=== PATIENT | male | born 1950 | race Caucasian/White ===

== ENCOUNTER 2017-10-23 10:24 | Observation (INO) ==
[2017-10-23] MEDS ORDERED: SODIUM CHLORIDE 0.45% 1,000 ML IV SCH (10:30)
[2017-10-23] MEDS ORDERED: DIAZEPAM 5 MG TABLET PO ONE (10:30)
[2017-10-23] MEDS ORDERED: diphenhydrAMINE CAP 25 MG CAPSULE PO ONE (10:30)
[2017-10-23] MEDS ORDERED: ASPIRIN 325 MG TABLET PO ONE (10:30)
[2017-10-23 11:15] LABS: Basophils % 0.5 % (0.0-0.8); Eosinophils # 0.1 10*3/uL (0.0-0.87); Eosinophils % 1.8 % (0.00-10.9); Hemoglobin 15.5 GM/DL (14.0-18.0); Immature Granulocytes % 0.4 %; Immature Granulocytes Absolute 0.03 #; Lymphocytes # 0.8 10*3/uL (1.4-4.0); Lymphocytes % 9.6 % (21.2-54.2); Mean Corpuscular HGB Conc 33.7 GM/DL (32-36); Mean Corpuscular Hemoglobin 32 PG (27-34); Mean Corpuscular Volume 95.2 FL (87-102); Mean Platelet Volume 10.7 FL (9.6-12.0); Monocytes # 0.7 10*3/uL (0.11-0.8); Monocytes % 9.1 % (1.7-12.7); Neutrophils # 6.1 10*3/uL (1.4-7.4); Neutrophils % 78.6 % (38.7-73.9); Platelet Count 298 T/CUMM (130-400); Red Blood Count 4.83 MC/CUMM (3.8-5.5); Red Cell Distribution Width 14.1 % (9.3-17.3); White Blood Count 7.8 T/CUMM (4-12)
[2017-10-23] MEDS ORDERED: DIAZEPAM 5 MG TABLET ONE (11:46)
[2017-10-23] MEDS ORDERED: ASPIRIN 325 MG TABLET ONE (11:46)
[2017-10-23] MEDS ORDERED: diphenhydrAMINE CAP 25 MG CAPSULE ONE (11:46)
[2017-10-23] MEDS ORDERED: LIDOCAINE 1% 20 ML VIAL ONE (13:03)
[2017-10-23] MEDS ORDERED: fentaNYL 100 MCG/2 ML VIAL ONE (13:03)
[2017-10-23] MEDS ORDERED: MIDAZOLAM 2 MG/2 ML VIAL ONE ×2 (13:03→13:40)
[2017-10-23] MEDS ORDERED: HEPARIN/NACL 0.9% 2 UNITS/ML 2,000 ML IV ONE (13:03)
[2017-10-23] MEDS ORDERED: ACETAMINOPHEN 325 MG TABLET PO PRN (14:47)
[2017-10-23] MEDS ORDERED: POTASSIUM CHLORIDE 20 MEQ TABLET PO PRN (14:55)
[2017-10-23] MEDS ORDERED: ALBUTEROL 2.5 MG/3 ML NEB RESP TX PRN (14:55)
[2017-10-23] MEDS: POTASSIUM CHLORIDE 20 MEQ TABLET PO SCH (17:47)
[2017-10-23] MEDS: FUROSEMIDE 20 MG TABLET PO SCH (17:47)
[2017-10-23] MEDS: SODIUM BICARB INJ 50 MEQ in SODIUM CHLORIDE 0.45% 1,000 ML IV SCH (18:43)
[2017-10-23] MEDS ORDERED: ATORVASTATIN 20 MG TABLET PO SCH (21:00)
[2017-10-23] MEDS: FAMOTIDINE 20 MG TABLET PO SCH (21:03)
[2017-10-23] MEDS: CALCIUM (CARBONATE) 500 MG TABLET PO SCH (21:03)
[2017-10-23] MEDS: FLUTICASONE/SALMETEROL 250-50 DISKUS 14 DOSE INH SCH (21:03)
[2017-10-24] MEDS: SODIUM BICARB INJ 50 MEQ in SODIUM CHLORIDE 0.45% 1,000 ML IV SCH ×2 (05:18→16:09)
[2017-10-24 05:43] LABS: Basophils % 0.6 % (0.0-0.8); Eosinophils # 0.3 10*3/uL (0.0-0.87); Eosinophils % 5.3 % (0.00-10.9); Hematocrit 42.4 VOL% (42.0-52.0); Hemoglobin 14.4 GM/DL (14.0-18.0); Immature Granulocytes % 0.4 %; Immature Granulocytes Absolute 0.02 #; Lymphocytes # 0.8 10*3/uL (1.4-4.0); Lymphocytes % 16.1 % (21.2-54.2); Mean Corpuscular Hemoglobin 32 PG (27-34); Mean Corpuscular Volume 94.6 FL (87-102); Mean Platelet Volume 11.5 FL (9.6-12.0); Monocytes # 0.7 10*3/uL (0.11-0.8); Monocytes % 14.6 % (1.7-12.7); Neutrophils # 3.1 10*3/uL (1.4-7.4); Platelet Count 272 T/CUMM (130-400); Red Blood Count 4.48 MC/CUMM (3.8-5.5); Red Cell Distribution Width 14.4 % (9.3-17.3); White Blood Count 4.9 T/CUMM (4-12)
[2017-10-24 06:25] LABS: Calcium 7.7 MG/DL (8.5-10.1); Osmolality,Calculated 284.1 MOS/KG (273-304); Potassium 3.5 MMOL/L (3.5-5.1)
[2017-10-24] MEDS ORDERED: LEVOTHYROXINE 175 MCG TABLET PO SCH (06:30)
[2017-10-24] MEDS: CALCIUM (CARBONATE) 500 MG TABLET PO SCH (08:52)
[2017-10-24] MEDS: FAMOTIDINE 20 MG TABLET PO SCH (08:53)
[2017-10-24] MEDS ORDERED: METOPROLOL TARTRATE 25 MG TABLET PO SCH (09:00)
[2017-10-24] MEDS ORDERED: ASPIRIN EC 81 MG TABLET PO SCH ×2 (09:00)
[2017-10-24] MEDS ORDERED: MULTIVITAMIN (CENTRUM) TABLET PO SCH (09:00)
[2017-10-24] MEDS ORDERED: CETIRIZINE 10 MG TABLET PO SCH (09:00)
[2017-10-24] MEDS ORDERED: FUROSEMIDE 40 MG TABLET PO SCH (09:00)
[2017-10-24] MEDS: FLUTICASONE/SALMETEROL 250-50 DISKUS 14 DOSE INH SCH (11:00)
[2017-10-24 17:01] VITALS: BP 98/61
[2017-10-24] MEDS: POTASSIUM CHLORIDE 20 MEQ TABLET PO SCH (18:09)
[2017-10-24] MEDS: FUROSEMIDE 20 MG TABLET PO SCH (18:09)
== END 2017-10-24 18:00 | disposition home or self-care (01) ==
LOC: N.CL 10:24 → INTOOBSV 14:17 → N.TELES 14:17
PROVIDERS: ADMIT Internal Medicine Cardiovascular Disease; ATTEND Internal Medicine Cardiovascular Disease

== ENCOUNTER 2017-11-21 10:18 | Inpatient (IN) ==
[2017-11-21] MEDS ORDERED: diphenhydrAMINE CAP 25 MG CAPSULE PO ONE (10:47)
[2017-11-21] MEDS ORDERED: DIAZEPAM 5 MG TABLET PO ONE (10:47)
[2017-11-21] MEDS ORDERED: TICAGRELOR 90 MG TABLET PO ONE (10:47)
[2017-11-21] MEDS ORDERED: diphenhydrAMINE CAP 25 MG CAPSULE ONE (11:30)
[2017-11-21] MEDS ORDERED: DIAZEPAM 5 MG TABLET ONE (11:30)
[2017-11-21] MEDS ORDERED: TICAGRELOR 90 MG TABLET ONE (11:32)
[2017-11-21] MEDS ORDERED: ALBUTEROL/IPRATROPIUM 3 ML NEB RESP TX STA (11:33)
[2017-11-21 11:34] LABS: Basophils % 0.6 % (0.0-0.8); Eosinophils # 0.1 10*3/uL (0.0-0.87); Eosinophils % 1.3 % (0.00-10.9); Hematocrit 43.6 VOL% (42.0-52.0); Hemoglobin 14.9 GM/DL (14.0-18.0); Immature Granulocytes % 0.6 %; Immature Granulocytes Absolute 0.04 #; Lymphocytes # 0.6 10*3/uL (1.4-4.0); Mean Corpuscular HGB Conc 34.2 GM/DL (32-36); Mean Corpuscular Hemoglobin 32 PG (27-34); Mean Corpuscular Volume 92.6 FL (87-102); Mean Platelet Volume 11.1 FL (9.6-12.0); Monocytes # 0.5 10*3/uL (0.11-0.8); Monocytes % 7.4 % (1.7-12.7); Neutrophils # 5.8 10*3/uL (1.4-7.4); Neutrophils % 81.1 % (38.7-73.9); Platelet Count 267 T/CUMM (130-400); Red Blood Count 4.71 MC/CUMM (3.8-5.5); Red Cell Distribution Width 13.9 % (9.3-17.3); White Blood Count 7.2 T/CUMM (4-12)
[2017-11-21] MEDS: SODIUM CHLORIDE 0.9% 1,000 ML IV SCH ×2 (11:37→19:15)
[2017-11-21 12:05] LABS: Calcium 8.2 MG/DL (8.5-10.1); Osmolality,Calculated 278.5 MOS/KG (273-304); Potassium 3.5 MMOL/L (3.5-5.1)
[2017-11-21] MEDS ORDERED: HEPARIN/NACL 0.9% 2 UNITS/ML 1,000 ML IV ONE (12:05)
[2017-11-21] MEDS ORDERED: HEPARIN/NACL 0.9% 2 UNITS/ML 500 ML IV ONE ×2 (12:20→14:12)
[2017-11-21] MEDS ORDERED: HEPARIN 5,000 UNIT/1 ML VIAL ONE (12:41)
[2017-11-21] MEDS ORDERED: DOPamine 800 MG/250 ML PREMIX IV ONE (12:59)
[2017-11-21 13:05] LABS: Apearance,Urine CLEAR (Clear); Bacteria,Urine Occasional /HPF (Few); Bilirubin,Urine Negative (Negative); Blood, Urine Negative (Negative); Glucose,Urine (UA) Negative (Negative); Ketones,Urine 80 mg/dL (Negative); Nitrite,Urine Negative (Negative); Protein,Urine Negative; RBC,Urine 2 /HPF (0-4); Squamous Epithelial Cell,Urine Occasional /HPF (0-10); Urine Color Yellow (Yellow); Urine Specific Gravity 1.016 (1.001-1.035); Urine Urobilinogen < 2.0 EU/DL (0.2-1.0); WBC,Urine <1 /HPF (0-6)
[2017-11-21] MEDS ORDERED: MIDAZOLAM 2 MG/2 ML VIAL ONE (14:23)
[2017-11-21] MEDS ORDERED: fentaNYL 100 MCG/2 ML VIAL ONE (14:24)
[2017-11-21] MEDS ORDERED: MORPHINE 4 MG/1 ML VIAL IV PRN (15:00)
[2017-11-21] MEDS ORDERED: ACETAMINOPHEN 325 MG TABLET PO PRN (15:00)
[2017-11-21] MEDS ORDERED: POTASSIUM CHLORIDE 20 MEQ TABLET PO PRN (15:02)
[2017-11-21] MEDS ORDERED: LIDOCAINE 1%/EPI INJ 20 ML VIAL ONE (15:17)
[2017-11-21] MEDS ORDERED: SODIUM CHLORIDE 0.9% 250 ML IV ONE ×2 (16:40→18:03)
[2017-11-21 17:02] LABS: Troponin I Only 0.725 NG/ML (0.00-0.045)
[2017-11-21] MEDS ORDERED: PHENYLEPHRINE DRIP 40 MG/250 ML PREMIX IV PRN (18:36)
[2017-11-21 20:08] LABS: Troponin I Only 0.613 NG/ML (0.00-0.045)
[2017-11-21] MEDS: FLUTICASONE/SALMETEROL 250-50 DISKUS 14 DOSE INH SCH (20:28)
[2017-11-21] MEDS: CALCIUM (CARBONATE) 500 MG TABLET PO SCH (20:29)
[2017-11-21] MEDS: TICAGRELOR 90 MG TABLET PO SCH (20:29)
[2017-11-21] MEDS: ALBUTEROL/IPRATROPIUM 3 ML NEB RESP TX SCH (20:32)
[2017-11-21] MEDS ORDERED: FUROSEMIDE 40 MG TABLET PO SCH (21:00)
[2017-11-21] MEDS ORDERED: ATORVASTATIN 20 MG TABLET PO SCH (21:00)
[2017-11-21 21:58] LABS: Troponin I Only 0.472 NG/ML (0.00-0.045)
[2017-11-22] MEDS: ALBUTEROL/IPRATROPIUM 3 ML NEB RESP TX SCH ×3 (01:10→13:50)
[2017-11-22] MEDS: SODIUM CHLORIDE 0.9% 1,000 ML IV SCH (02:46)
[2017-11-22 03:27] LABS: Basophils % 0.2 % (0.0-0.8); Eosinophils # 0.1 10*3/uL (0.0-0.87); Eosinophils % 0.7 % (0.00-10.9); Hematocrit 38.6 VOL% (42.0-52.0); Immature Granulocytes % 0.4 %; Immature Granulocytes Absolute 0.04 #; Lymphocytes # 0.8 10*3/uL (1.4-4.0); Lymphocytes % 7.5 % (21.2-54.2); Mean Corpuscular HGB Conc 33.7 GM/DL (32-36); Mean Corpuscular Hemoglobin 32 PG (27-34); Mean Corpuscular Volume 94.1 FL (87-102); Mean Platelet Volume 11.7 FL (9.6-12.0); Monocytes % 9.1 % (1.7-12.7); Neutrophils # 8.6 10*3/uL (1.4-7.4); Neutrophils % 82.1 % (38.7-73.9); Platelet Count 235 T/CUMM (130-400); White Blood Count 10.5 T/CUMM (4-12)
[2017-11-22 03:52] LABS: Calcium 7.5 MG/DL (8.5-10.1); Osmolality,Calculated 283.3 MOS/KG (273-304); Potassium 3.2 MMOL/L (3.5-5.1)
[2017-11-22] MEDS ORDERED: POTASSIUM CHLORIDE 20 MEQ TABLET PO ONE ×3 (06:07→08:08)
[2017-11-22] MEDS ORDERED: GLYCERIN ADULT SUPP RECTAL ONE (06:51)
[2017-11-22] MEDS ORDERED: LEVOTHYROXINE 175 MCG TABLET PO SCH (07:00)
[2017-11-22] MEDS ORDERED: PANTOPRAZOLE 40 MG TABLET PO SCH (09:00)
[2017-11-22] MEDS ORDERED: CETIRIZINE 10 MG TABLET PO SCH (09:00)
[2017-11-22] MEDS ORDERED: METOPROLOL TARTRATE 25 MG TABLET PO SCH (09:00)
[2017-11-22] MEDS ORDERED: MULTIVITAMIN (CENTRUM) TABLET PO SCH (09:00)
[2017-11-22] MEDS ORDERED: ASPIRIN EC 81 MG TABLET PO SCH (09:00)
[2017-11-22] MEDS: TICAGRELOR 90 MG TABLET PO SCH (09:13)
[2017-11-22] MEDS: CALCIUM (CARBONATE) 500 MG TABLET PO SCH (09:14)
[2017-11-22] MEDS: FLUTICASONE/SALMETEROL 250-50 DISKUS 14 DOSE INH SCH (09:14)
[2017-11-22 15:32] VITALS: BP 92/53
== END 2017-11-22 15:25 | disposition home or self-care (01) | DRG 215 ==
LOC: N.CL 10:18 → N.CC 11:01 → EDSTATUS 12:00 → N.CC 14:15
PROVIDERS: ADMIT Internal Medicine Cardiovascular Disease; ATTEND Internal Medicine Cardiovascular Disease

== ENCOUNTER 2018-07-30 12:52 | Inpatient (IN) ==
[2018-07-30] MEDS ORDERED: ASPIRIN 325 MG TABLET PO STA (13:28)
[2018-07-30] MEDS ORDERED: ALBUTEROL/IPRATROPIUM 3 ML NEB RESP TX STA (13:28)
[2018-07-30] MEDS ORDERED: SODIUM CHLORIDE 0.9% 1,000 ML IV STA (13:54)
[2018-07-30 14:22] LABS: Basophils % 0.1 % (0.0-0.8); Eosinophils # 0.1 10*3/uL (0.0-0.87); Eosinophils % 0.4 % (0.00-10.9); Hematocrit 37.8 VOL% (42.0-52.0); Immature Granulocytes % 0.5 %; Immature Granulocytes Absolute 0.06 #; Lymphocytes # 0.5 10*3/uL (1.4-4.0); Lymphocytes % 3.5 % (21.2-54.2); Mean Corpuscular HGB Conc 34.4 GM/DL (32-36); Mean Corpuscular Hemoglobin 32 PG (27-34); Mean Corpuscular Volume 92.9 FL (87-102); Mean Platelet Volume 10.3 FL (9.6-12.0); Monocytes # 1.2 10*3/uL (0.11-0.8); Monocytes % 8.9 % (1.7-12.7); Neutrophils # 11.4 10*3/uL (1.4-7.4); Neutrophils % 86.6 % (38.7-73.9); Platelet Count 375 T/CUMM (130-400); Red Blood Count 4.07 MC/CUMM (3.8-5.5); Red Cell Distribution Width 14.3 % (9.3-17.3); White Blood Count 13.2 T/CUMM (4-12)
[2018-07-30 14:29] LABS: PT Patient Result 11.3 SECS
[2018-07-30 14:43] LABS: Alanine Aminotransferase 25 U/L (16-61); Albumin 1.8 G/DL (3.4-5.0); Alkaline Phosphatase 143 U/L (45-117); Aspartate Amino Transferase 27 U/L (0-37); Blood Urea Nitrogen 18 MG/DL (7-18); Calcium 7.5 MG/DL (8.5-10.1); Glucose 142 MG/DL (74-106); Lactic Acid 1.3 MMOL/L (0.4-2.0); Osmolality,Calculated 273.1 MOS/KG (273-304); Potassium 2.7 MMOL/L (3.5-5.1); Sodium 135 MMOL/L (136-145); Total Protein 5.7 G/DL (6.4-8.3)
[2018-07-30 14:47] LABS: Troponin I 0.494 NG/ML (0.00-0.045)
[2018-07-30] MEDS ORDERED: POTASSIUM CHLORIDE 20 MEQ TABLET PO STA (14:50)
[2018-07-30] MEDS ORDERED: PIPERACILLIN/TAZOBACTAM 3,375 MG in SODIUM CHLORIDE 0.9% 100 ML IV STA (14:54)
[2018-07-30] MEDS ORDERED: VANCOMYCIN INJ 1,000 MG in SODIUM CHLORIDE 0.9% 250 ML IV STA (14:54)
[2018-07-30 15:38] LABS: Eosinophils 2 % (0-10); Lymphocytes 2 % (20-55); Segmented Neutrophils 90 % (50-85); Total Cells Counted 100
[2018-07-30 15:42] LABS: Macrocytosis Slight; Platelet Estimate Adequate
[2018-07-30] MEDS ORDERED: NITROGLYCERIN SL 0.4 MG TABLET SL PRN (16:15)
[2018-07-30] MEDS ORDERED: ZALEPLON 5 MG CAPSULE PO PRN (16:20)
[2018-07-30] MEDS ORDERED: traZODone 50 MG TABLET PO PRN (16:20)
[2018-07-30] MEDS ORDERED: PROMETHAZINE 25 MG/1 ML VIAL IM PRN (16:20)
[2018-07-30] MEDS ORDERED: ONDANSETRON 4 MG/2 ML VIAL IV PRN (16:20)
[2018-07-30] MEDS ORDERED: diphenhydrAMINE CAP 25 MG CAPSULE PO PRN (16:20)
[2018-07-30] MEDS ORDERED: DEXTROSE 50% 25 GM/50 ML VIAL IV PRN (16:32)
[2018-07-30] MEDS ORDERED: GLUCAGON 1 MG VIAL IM PRN (16:32)
[2018-07-30] MEDS ORDERED: POTASSIUM CHLORIDE RIDER 10 MEQ in PREMIX 1 EACH IV PRN (16:38)
[2018-07-30] MEDS ORDERED: MAGNESIUM SULF RIDER 2 GM in PREMIX 1 EACH IV PRN (16:38)
[2018-07-30] MEDS ORDERED: MAGNESIUM SULF RIDER 4 GM in PREMIX 1 EACH IV PRN (16:38)
[2018-07-30 17:00] LABS: Risk Ratio 2.02; Thyroid Stimulating Hormone 4.06 uIU/ml (0.358-3.74); VLDL CHOLESTEROL 10.8 MG/DL
[2018-07-30 18:32] LABS: Apearance,Urine CLEAR (Clear); Bilirubin,Urine Negative (Negative); Blood, Urine Negative (Negative); Glucose,Urine (UA) Negative (Negative); Ketones,Urine Negative (Negative); Mucus,Urine Occasional /LPF (Occasional); Nitrite,Urine Negative (Negative); Protein,Urine Negative; RBC,Urine 1 /HPF (0-4); Squamous Epithelial Cell,Urine Occasional /HPF (0-10); Urine Color Yellow (Yellow); Urine Urobilinogen < 2.0 EU/DL (0.2-1.0); WBC,Urine <1 /HPF (0-6)
[2018-07-30] MEDS: ALBUTEROL/IPRATROPIUM 3 ML NEB RESP TX SCH ×2 (20:12→22:14)
[2018-07-30] MEDS: ATORVASTATIN 20 MG TABLET PO SCH (21:14)
[2018-07-30] MEDS: DOCUSATE SODIUM 100 MG CAPSULE PO SCH (21:14)
[2018-07-30] MEDS: INSULIN REGULAR 100 UNIT/ML SUBCUT SCH (21:14)
[2018-07-30] MEDS: methylPREDNISolone SOD SUC 40 MG/1 ML VIAL IV SCH ×2 (22:25→23:30)
[2018-07-31] MEDS: PIPERACILLIN/TAZOBACTAM 3,375 MG in SODIUM CHLORIDE 0.9% 100 ML IV SCH ×3 (00:56→17:18)
[2018-07-31] MEDS: ALBUTEROL/IPRATROPIUM 3 ML NEB RESP TX SCH ×4 (01:59→19:16)
[2018-07-31] MEDS: VANCOMYCIN INJ 1,000 MG in SODIUM CHLORIDE 0.9% 250 ML IV SCH ×2 (03:55→17:05)
[2018-07-31] MEDS: LEVOTHYROXINE 100 MCG TABLET PO SCH (06:12)
[2018-07-31] MEDS: methylPREDNISolone SOD SUC 40 MG/1 ML VIAL IV SCH ×3 (06:12→18:55)
[2018-07-31 06:27] LABS: Basophils % 0.1 % (0.0-0.8); Hematocrit 38.9 VOL% (42.0-52.0); Immature Granulocytes % 0.6 %; Immature Granulocytes Absolute 0.06 #; Lymphocytes # 0.2 10*3/uL (1.4-4.0); Lymphocytes % 1.5 % (21.2-54.2); Mean Corpuscular HGB Conc 33.4 GM/DL (32-36); Mean Corpuscular Hemoglobin 32 PG (27-34); Mean Corpuscular Volume 94.6 FL (87-102); Mean Platelet Volume 10.4 FL (9.6-12.0); Monocytes # 0.1 10*3/uL (0.11-0.8); Monocytes % 1.1 % (1.7-12.7); Neutrophils # 9.7 10*3/uL (1.4-7.4); Neutrophils % 96.7 % (38.7-73.9); Platelet Count 385 T/CUMM (130-400); Red Blood Count 4.11 MC/CUMM (3.8-5.5); Red Cell Distribution Width 14.4 % (9.3-17.3)
[2018-07-31 06:48] LABS: Albumin 1.7 G/DL (3.4-5.0); Bilirubin,Total 1.3 MG/DL (0.2-1.0); Calcium 7.6 MG/DL (8.5-10.1); Potassium 3.3 MMOL/L (3.5-5.1); Total Protein 5.7 G/DL (6.4-8.3)
[2018-07-31 06:54] LABS: Band Neutrophils 1 % (0-10); Hypochromasia 2+; Lymphocytes 1 % (20-55); Platelet Estimate Normal; Segmented Neutrophils 96 % (50-85); Total Cells Counted 100
[2018-07-31] MEDS: INSULIN REGULAR 100 UNIT/ML SUBCUT SCH ×4 (09:27→22:12)
[2018-07-31] MEDS: DOCUSATE SODIUM 100 MG CAPSULE PO SCH ×2 (09:31→22:11)
[2018-07-31] MEDS: MULTIVITAMIN (CENTRUM) TABLET PO SCH (09:31)
[2018-07-31] MEDS: CALCIUM (CARBONATE) 500 MG TABLET PO SCH (09:31)
[2018-07-31] MEDS: SPIRONOLACTONE 25 MG TABLET PO SCH ×2 (09:31→22:11)
[2018-07-31] MEDS: METOPROLOL SUCCINATE XL 25 MG TABLET PO SCH (09:31)
[2018-07-31] MEDS: PANTOPRAZOLE 40 MG TABLET PO SCH (09:32)
[2018-07-31] MEDS: POTASSIUM CHLORIDE 20 MEQ TABLET PO PRN ×3 (09:32→15:49)
[2018-07-31] MEDS: CETIRIZINE 10 MG TABLET PO SCH (09:32)
[2018-07-31 10:10] LABS: Troponin I 0.217 NG/ML (0.00-0.045)
[2018-07-31] MEDS: FUROSEMIDE 40 MG/4 ML VIAL IV SCH ×2 (10:50→16:10)
[2018-07-31] MEDS: ASPIRIN EC 81 MG TABLET PO SCH (11:07)
[2018-07-31] MEDS: TICAGRELOR 90 MG TABLET PO SCH ×2 (11:07→22:11)
[2018-07-31] MEDS: ALBUMIN 25% 25 GM in PREMIX 1 EACH IV SCH (16:14)
[2018-07-31 17:40] LABS: Troponin I 0.148 NG/ML (0.00-0.045)
[2018-07-31] MEDS: ATORVASTATIN 20 MG TABLET PO SCH (22:12)
[2018-08-01] MEDS: PIPERACILLIN/TAZOBACTAM 3,375 MG in SODIUM CHLORIDE 0.9% 100 ML IV SCH ×3 (00:13→16:43)
[2018-08-01] MEDS: methylPREDNISolone SOD SUC 40 MG/1 ML VIAL IV SCH ×4 (00:13→17:12)
[2018-08-01] MEDS: ALBUTEROL/IPRATROPIUM 3 ML NEB RESP TX SCH ×4 (00:54→19:39)
[2018-08-01] MEDS: ALBUMIN 25% 25 GM in PREMIX 1 EACH IV SCH ×2 (02:18→12:22)
[2018-08-01] MEDS: VANCOMYCIN INJ 1,000 MG in SODIUM CHLORIDE 0.9% 250 ML IV SCH ×2 (03:23→17:11)
[2018-08-01 04:42] LABS: Basophils % 0.1 % (0.0-0.8); Hematocrit 36.4 VOL% (42.0-52.0); Hemoglobin 12.1 GM/DL (14.0-18.0); Immature Granulocytes % 1.1 %; Immature Granulocytes Absolute 0.26 #; Lymphocytes # 0.3 10*3/uL (1.4-4.0); Lymphocytes % 1.1 % (21.2-54.2); Mean Corpuscular HGB Conc 33.2 GM/DL (32-36); Mean Corpuscular Hemoglobin 31 PG (27-34); Mean Corpuscular Volume 94.1 FL (87-102); Mean Platelet Volume 10.7 FL (9.6-12.0); Monocytes # 0.9 10*3/uL (0.11-0.8); Monocytes % 3.8 % (1.7-12.7); Neutrophils # 21.6 10*3/uL (1.4-7.4); Neutrophils % 93.9 % (38.7-73.9); Platelet Count 443 T/CUMM (130-400); Red Blood Count 3.87 MC/CUMM (3.8-5.5); Red Cell Distribution Width 14.3 % (9.3-17.3); White Blood Count 23.1 T/CUMM (4-12)
[2018-08-01 04:58] LABS: Calcium 8.3 MG/DL (8.5-10.1); Osmolality,Calculated 287.5 MOS/KG (273-304); Potassium 3.6 MMOL/L (3.5-5.1)
[2018-08-01 05:03] LABS: Albumin 2.4 G/DL (3.4-5.0); Bilirubin,Total 0.6 MG/DL (0.2-1.0); Calcium 8.4 MG/DL (8.5-10.1); Osmolality,Calculated 283.8 MOS/KG (273-304); Potassium 3.4 MMOL/L (3.5-5.1); Total Protein 5.9 G/DL (6.4-8.3)
[2018-08-01 05:11] LABS: Band Neutrophils 1 % (0-10); Platelet Estimate Normal; Segmented Neutrophils 98 % (50-85); Total Cells Counted 100
[2018-08-01] MEDS: LEVOTHYROXINE 100 MCG TABLET PO SCH (05:42)
[2018-08-01] MEDS: MULTIVITAMIN (CENTRUM) TABLET PO SCH (09:00)
[2018-08-01] MEDS: TICAGRELOR 90 MG TABLET PO SCH ×2 (09:00→20:43)
[2018-08-01] MEDS: CALCIUM (CARBONATE) 500 MG TABLET PO SCH (09:00)
[2018-08-01] MEDS: PANTOPRAZOLE 40 MG TABLET PO SCH (09:01)
[2018-08-01] MEDS: DOCUSATE SODIUM 100 MG CAPSULE PO SCH ×3 (09:01→22:25)
[2018-08-01] MEDS: INSULIN REGULAR 100 UNIT/ML SUBCUT SCH ×4 (09:01→20:44)
[2018-08-01] MEDS: FUROSEMIDE 40 MG/4 ML VIAL IV SCH ×2 (09:01→16:43)
[2018-08-01] MEDS: ASPIRIN EC 81 MG TABLET PO SCH (09:01)
[2018-08-01] MEDS: CETIRIZINE 10 MG TABLET PO SCH (09:01)
[2018-08-01] MEDS: METOPROLOL SUCCINATE XL 25 MG TABLET PO SCH (09:03)
[2018-08-01] MEDS: SPIRONOLACTONE 25 MG TABLET PO SCH ×2 (09:03→20:43)
[2018-08-01 11:38] LABS: Total Protein,Body Fluid 2.3 G/DL
[2018-08-01 11:53] LABS: Lymphocytes,Pleural Fluid 70 %; Neutrophils,Pleural Fluid 30 %
[2018-08-01 11:54] LABS: RBC,Pleural Fluid 33573 T/CUMM
[2018-08-01] MEDS: ATORVASTATIN 20 MG TABLET PO SCH (20:43)
[2018-08-01] MEDS: ACETAMINOPHEN 325 MG TABLET PO PRN (20:43)
[2018-08-02] MEDS: ALBUTEROL/IPRATROPIUM 3 ML NEB RESP TX SCH ×4 (00:53→20:06)
[2018-08-02] MEDS: methylPREDNISolone SOD SUC 40 MG/1 ML VIAL IV SCH ×5 (01:25→23:14)
[2018-08-02] MEDS: PIPERACILLIN/TAZOBACTAM 3,375 MG in SODIUM CHLORIDE 0.9% 100 ML IV SCH ×4 (01:29→23:17)
[2018-08-02] MEDS: ALBUMIN 25% 25 GM in PREMIX 1 EACH IV SCH (01:29)
[2018-08-02] MEDS: VANCOMYCIN INJ 1,000 MG in SODIUM CHLORIDE 0.9% 250 ML IV SCH ×2 (04:33→16:18)
[2018-08-02 05:37] LABS: Basophils % 0.1 % (0.0-0.8); Hematocrit 36.8 VOL% (42.0-52.0); Hemoglobin 11.8 GM/DL (14.0-18.0); Immature Granulocytes % 2.7 %; Immature Granulocytes Absolute 0.66 #; Lymphocytes # 0.2 10*3/uL (1.4-4.0); Lymphocytes % 0.9 % (21.2-54.2); Mean Corpuscular HGB Conc 32.1 GM/DL (32-36); Mean Corpuscular Hemoglobin 31 PG (27-34); Mean Corpuscular Volume 95.6 FL (87-102); Monocytes # 1.1 10*3/uL (0.11-0.8); Monocytes % 4.5 % (1.7-12.7); Neutrophils # 22.5 10*3/uL (1.4-7.4); Neutrophils % 91.8 % (38.7-73.9); Platelet Count 378 T/CUMM (130-400); Red Blood Count 3.85 MC/CUMM (3.8-5.5); Red Cell Distribution Width 14.6 % (9.3-17.3); White Blood Count 24.5 T/CUMM (4-12)
[2018-08-02 06:02] LABS: Albumin 2.6 G/DL (3.4-5.0); Bilirubin,Total 0.4 MG/DL (0.2-1.0); Calcium 8.1 MG/DL (8.5-10.1); Osmolality,Calculated 292.4 MOS/KG (273-304); Total Protein 5.8 G/DL (6.4-8.3)
[2018-08-02] MEDS: LEVOTHYROXINE 100 MCG TABLET PO SCH (06:05)
[2018-08-02 06:11] LABS: Hypochromasia Slight; Lymphocytes 3 % (20-55); Platelet Estimate Normal; Segmented Neutrophils 96 % (50-85); Total Cells Counted 100
[2018-08-02] MEDS: INSULIN REGULAR 100 UNIT/ML SUBCUT SCH ×4 (08:47→21:19)
[2018-08-02] MEDS: FUROSEMIDE 40 MG/4 ML VIAL IV SCH ×2 (08:48→16:19)
[2018-08-02] MEDS: CETIRIZINE 10 MG TABLET PO SCH (08:49)
[2018-08-02] MEDS: DOCUSATE SODIUM 100 MG CAPSULE PO SCH ×2 (08:49→21:19)
[2018-08-02] MEDS: MULTIVITAMIN (CENTRUM) TABLET PO SCH (08:49)
[2018-08-02] MEDS: SPIRONOLACTONE 25 MG TABLET PO SCH ×2 (08:49→21:18)
[2018-08-02] MEDS: PANTOPRAZOLE 40 MG TABLET PO SCH (08:49)
[2018-08-02] MEDS: CALCIUM (CARBONATE) 500 MG TABLET PO SCH (08:49)
[2018-08-02] MEDS: TICAGRELOR 90 MG TABLET PO SCH ×2 (08:49→21:18)
[2018-08-02] MEDS: METOPROLOL SUCCINATE XL 25 MG TABLET PO SCH (08:50)
[2018-08-02] MEDS: ASPIRIN EC 81 MG TABLET PO SCH (08:52)
[2018-08-02] MEDS: POTASSIUM CHLORIDE RIDER 10 MEQ in PREMIX 1 EACH IV SCH ×3 (14:25→23:16)
[2018-08-02] MEDS: ATORVASTATIN 20 MG TABLET PO SCH (21:18)
[2018-08-02] MEDS: INSULIN GLARGINE 100 UNIT/ML SUBCUT SCH (21:18)
[2018-08-03] MEDS: ALBUTEROL/IPRATROPIUM 3 ML NEB RESP TX SCH ×4 (01:45→19:31)
[2018-08-03] MEDS: POTASSIUM CHLORIDE RIDER 10 MEQ in PREMIX 1 EACH IV SCH ×4 (04:19→20:29)
[2018-08-03] MEDS: VANCOMYCIN INJ 1,000 MG in SODIUM CHLORIDE 0.9% 250 ML IV SCH ×2 (04:20→16:03)
[2018-08-03 05:42] LABS: Basophils % 0.2 % (0.0-0.8); Hematocrit 39.5 VOL% (42.0-52.0); Hemoglobin 13.1 GM/DL (14.0-18.0); Immature Granulocytes % 1.7 %; Immature Granulocytes Absolute 0.43 #; Lymphocytes # 0.1 10*3/uL (1.4-4.0); Lymphocytes % 0.6 % (21.2-54.2); Mean Corpuscular HGB Conc 33.2 GM/DL (32-36); Mean Corpuscular Hemoglobin 32 PG (27-34); Monocytes # 0.8 10*3/uL (0.11-0.8); Monocytes % 3.3 % (1.7-12.7); Neutrophils # 23.7 10*3/uL (1.4-7.4); Neutrophils % 94.2 % (38.7-73.9); Platelet Count 359 T/CUMM (130-400); Red Blood Count 4.16 MC/CUMM (3.8-5.5); Red Cell Distribution Width 14.6 % (9.3-17.3); White Blood Count 25.1 T/CUMM (4-12)
[2018-08-03 06:04] LABS: Albumin 2.3 G/DL (3.4-5.0); Bilirubin,Total 0.6 MG/DL (0.2-1.0); Calcium 7.5 MG/DL (8.5-10.1); Osmolality,Calculated 291.3 MOS/KG (273-304); Potassium 3.2 MMOL/L (3.5-5.1); Total Protein 5.6 G/DL (6.4-8.3)
[2018-08-03] MEDS: LEVOTHYROXINE 100 MCG TABLET PO SCH (06:14)
[2018-08-03] MEDS: methylPREDNISolone SOD SUC 40 MG/1 ML VIAL IV SCH ×3 (06:14→17:39)
[2018-08-03 06:15] LABS: Lymphocytes 2 % (20-55); Segmented Neutrophils 94 % (50-85); Total Cells Counted 100
[2018-08-03 06:16] LABS: Hypochromasia Slight; Macrocytosis Slight; Platelet Estimate Normal
[2018-08-03] MEDS: INSULIN REGULAR 100 UNIT/ML SUBCUT SCH ×4 (09:19→21:25)
[2018-08-03] MEDS: POTASSIUM CHLORIDE 20 MEQ TABLET PO PRN ×2 (09:20→12:24)
[2018-08-03] MEDS: MULTIVITAMIN (CENTRUM) TABLET PO SCH (09:20)
[2018-08-03] MEDS: PANTOPRAZOLE 40 MG TABLET PO SCH (09:20)
[2018-08-03] MEDS: CALCIUM (CARBONATE) 500 MG TABLET PO SCH (09:21)
[2018-08-03] MEDS: CETIRIZINE 10 MG TABLET PO SCH (09:21)
[2018-08-03] MEDS: PIPERACILLIN/TAZOBACTAM 3,375 MG in SODIUM CHLORIDE 0.9% 100 ML IV SCH ×2 (09:22→16:10)
[2018-08-03] MEDS: SPIRONOLACTONE 25 MG TABLET PO SCH ×2 (09:23→21:25)
[2018-08-03] MEDS: DOCUSATE SODIUM 100 MG CAPSULE PO SCH ×2 (09:23→21:25)
[2018-08-03] MEDS: ASPIRIN EC 81 MG TABLET PO SCH (09:23)
[2018-08-03] MEDS: METOPROLOL SUCCINATE XL 25 MG TABLET PO SCH (09:23)
[2018-08-03] MEDS: FUROSEMIDE 40 MG/4 ML VIAL IV SCH ×2 (09:28→16:03)
[2018-08-03] MEDS: TICAGRELOR 90 MG TABLET PO SCH ×2 (09:28→21:25)
[2018-08-03] MEDS: INSULIN GLARGINE 100 UNIT/ML SUBCUT SCH (21:25)
[2018-08-03] MEDS: ATORVASTATIN 20 MG TABLET PO SCH (21:25)
[2018-08-03] MEDS: ACETAMINOPHEN 325 MG TABLET PO PRN (23:50)
[2018-08-04] MEDS: POTASSIUM CHLORIDE RIDER 10 MEQ in PREMIX 1 EACH IV SCH (00:29)
[2018-08-04] MEDS: PIPERACILLIN/TAZOBACTAM 3,375 MG in SODIUM CHLORIDE 0.9% 100 ML IV SCH ×4 (00:30→23:29)
[2018-08-04] MEDS: methylPREDNISolone SOD SUC 40 MG/1 ML VIAL IV SCH ×5 (00:30→23:29)
[2018-08-04] MEDS: ALBUTEROL/IPRATROPIUM 3 ML NEB RESP TX SCH ×4 (00:39→19:33)
[2018-08-04] MEDS: VANCOMYCIN INJ 1,000 MG in SODIUM CHLORIDE 0.9% 250 ML IV SCH ×2 (03:44→16:18)
[2018-08-04] MEDS: LEVOTHYROXINE 100 MCG TABLET PO SCH (06:06)
[2018-08-04] MEDS: CALCIUM (CARBONATE) 500 MG TABLET PO SCH (09:11)
[2018-08-04] MEDS: TICAGRELOR 90 MG TABLET PO SCH ×2 (09:11→21:35)
[2018-08-04] MEDS: MULTIVITAMIN (CENTRUM) TABLET PO SCH (09:11)
[2018-08-04] MEDS: CETIRIZINE 10 MG TABLET PO SCH (09:11)
[2018-08-04] MEDS: PANTOPRAZOLE 40 MG TABLET PO SCH (09:11)
[2018-08-04] MEDS: DOCUSATE SODIUM 100 MG CAPSULE PO SCH ×2 (09:11→21:36)
[2018-08-04] MEDS: INSULIN REGULAR 100 UNIT/ML SUBCUT SCH ×4 (09:11→21:35)
[2018-08-04] MEDS: ASPIRIN EC 81 MG TABLET PO SCH (09:11)
[2018-08-04] MEDS: SPIRONOLACTONE 25 MG TABLET PO SCH ×2 (09:11→21:35)
[2018-08-04] MEDS: METOPROLOL SUCCINATE XL 25 MG TABLET PO SCH (09:11)
[2018-08-04] MEDS: FUROSEMIDE 40 MG/4 ML VIAL IV SCH ×2 (09:12→16:17)
[2018-08-04 12:34] LABS: Lymphocytes,Pleural Fluid 17 %; Neutrophils,Pleural Fluid 83 %
[2018-08-04 12:39] LABS: RBC,Pleural Fluid 10994 T/CUMM
[2018-08-04 12:50] LABS: TB2 Ag Minus Result 0 IU/mL
[2018-08-04] MEDS: POTASSIUM CHLORIDE 20 MEQ TABLET PO PRN ×2 (16:17→17:53)
[2018-08-04] MEDS: ATORVASTATIN 20 MG TABLET PO SCH (21:35)
[2018-08-04] MEDS: INSULIN GLARGINE 100 UNIT/ML SUBCUT SCH (21:35)
[2018-08-04] MEDS: MORPHINE 4 MG/1 ML VIAL IV PRN (21:39)
[2018-08-05] MEDS: ALBUTEROL/IPRATROPIUM 3 ML NEB RESP TX SCH ×4 (00:27→19:54)
[2018-08-05] MEDS: VANCOMYCIN INJ 1,000 MG in SODIUM CHLORIDE 0.9% 250 ML IV SCH ×2 (03:14→16:04)
[2018-08-05] MEDS: methylPREDNISolone SOD SUC 40 MG/1 ML VIAL IV SCH ×3 (06:20→18:10)
[2018-08-05] MEDS: LEVOTHYROXINE 100 MCG TABLET PO SCH (06:20)
[2018-08-05] MEDS: DOCUSATE SODIUM 100 MG CAPSULE PO SCH ×3 (09:41→21:05)
[2018-08-05] MEDS: PANTOPRAZOLE 40 MG TABLET PO SCH (09:41)
[2018-08-05] MEDS: MULTIVITAMIN (CENTRUM) TABLET PO SCH (09:41)
[2018-08-05] MEDS: METOPROLOL SUCCINATE XL 25 MG TABLET PO SCH (09:41)
[2018-08-05] MEDS: SPIRONOLACTONE 25 MG TABLET PO SCH ×2 (09:41→21:03)
[2018-08-05] MEDS: TICAGRELOR 90 MG TABLET PO SCH ×2 (09:41→21:03)
[2018-08-05] MEDS: CETIRIZINE 10 MG TABLET PO SCH (09:41)
[2018-08-05] MEDS: INSULIN REGULAR 100 UNIT/ML SUBCUT SCH ×4 (09:41→21:04)
[2018-08-05] MEDS: CALCIUM (CARBONATE) 500 MG TABLET PO SCH (09:41)
[2018-08-05] MEDS: ASPIRIN EC 81 MG TABLET PO SCH (09:41)
[2018-08-05] MEDS: FUROSEMIDE 40 MG/4 ML VIAL IV SCH ×2 (09:42→16:04)
[2018-08-05] MEDS: PIPERACILLIN/TAZOBACTAM 3,375 MG in SODIUM CHLORIDE 0.9% 100 ML IV SCH ×2 (09:45→16:04)
[2018-08-05] MEDS: ATORVASTATIN 20 MG TABLET PO SCH (21:03)
[2018-08-05] MEDS: INSULIN GLARGINE 100 UNIT/ML SUBCUT SCH (21:04)
[2018-08-06] MEDS: PIPERACILLIN/TAZOBACTAM 3,375 MG in SODIUM CHLORIDE 0.9% 100 ML IV SCH ×3 (00:22→16:44)
[2018-08-06] MEDS: methylPREDNISolone SOD SUC 40 MG/1 ML VIAL IV SCH ×4 (00:22→17:02)
[2018-08-06] MEDS: MORPHINE 4 MG/1 ML VIAL IV PRN (01:07)
[2018-08-06] MEDS: ALBUTEROL/IPRATROPIUM 3 ML NEB RESP TX SCH ×4 (01:52→19:22)
[2018-08-06] MEDS: VANCOMYCIN INJ 1,000 MG in SODIUM CHLORIDE 0.9% 250 ML IV SCH ×3 (05:36→23:23)
[2018-08-06] MEDS: LEVOTHYROXINE 100 MCG TABLET PO SCH (05:37)
[2018-08-06] MEDS: INSULIN REGULAR 100 UNIT/ML SUBCUT SCH ×4 (09:11→22:06)
[2018-08-06] MEDS: FUROSEMIDE 40 MG/4 ML VIAL IV SCH ×2 (09:29→16:44)
[2018-08-06] MEDS: ASPIRIN EC 81 MG TABLET PO SCH (09:30)
[2018-08-06] MEDS: PANTOPRAZOLE 40 MG TABLET PO SCH (09:30)
[2018-08-06] MEDS: CETIRIZINE 10 MG TABLET PO SCH (09:30)
[2018-08-06] MEDS: SPIRONOLACTONE 25 MG TABLET PO SCH ×2 (09:30→22:05)
[2018-08-06] MEDS: DOCUSATE SODIUM 100 MG CAPSULE PO SCH ×2 (09:30→22:05)
[2018-08-06] MEDS: CALCIUM (CARBONATE) 500 MG TABLET PO SCH (09:30)
[2018-08-06] MEDS: MULTIVITAMIN (CENTRUM) TABLET PO SCH (09:30)
[2018-08-06] MEDS: METOPROLOL SUCCINATE XL 25 MG TABLET PO SCH (09:30)
[2018-08-06] MEDS: TICAGRELOR 90 MG TABLET PO SCH ×2 (09:30→22:05)
[2018-08-06] MEDS: OCTREOTIDE 100 MCG/ML SYRINGE SUBCUT SCH ×2 (16:43→22:29)
[2018-08-06] MEDS: INSULIN GLARGINE 100 UNIT/ML SUBCUT SCH (22:05)
[2018-08-06] MEDS: ATORVASTATIN 20 MG TABLET PO SCH (22:07)
[2018-08-07] MEDS: ALBUTEROL/IPRATROPIUM 3 ML NEB RESP TX SCH ×4 (00:29→19:41)
[2018-08-07] MEDS: methylPREDNISolone SOD SUC 40 MG/1 ML VIAL IV SCH ×3 (00:35→11:49)
[2018-08-07] MEDS: MORPHINE 4 MG/1 ML VIAL IV PRN ×2 (00:36→23:23)
[2018-08-07] MEDS: PIPERACILLIN/TAZOBACTAM 3,375 MG in SODIUM CHLORIDE 0.9% 100 ML IV SCH ×2 (00:38→09:51)
[2018-08-07] MEDS: LEVOTHYROXINE 100 MCG TABLET PO SCH (06:18)
[2018-08-07] MEDS: INSULIN REGULAR 100 UNIT/ML SUBCUT SCH ×4 (07:41→23:14)
[2018-08-07] MEDS: DOCUSATE SODIUM 100 MG CAPSULE PO SCH ×2 (08:52→23:14)
[2018-08-07] MEDS: CETIRIZINE 10 MG TABLET PO SCH (08:52)
[2018-08-07] MEDS: METOPROLOL SUCCINATE XL 25 MG TABLET PO SCH (08:52)
[2018-08-07] MEDS: TICAGRELOR 90 MG TABLET PO SCH ×2 (08:52→23:13)
[2018-08-07] MEDS: OCTREOTIDE 100 MCG/ML SYRINGE SUBCUT SCH ×2 (08:52→23:22)
[2018-08-07] MEDS: MULTIVITAMIN (CENTRUM) TABLET PO SCH (08:52)
[2018-08-07] MEDS: PANTOPRAZOLE 40 MG TABLET PO SCH (08:52)
[2018-08-07] MEDS: CALCIUM (CARBONATE) 500 MG TABLET PO SCH (08:52)
[2018-08-07] MEDS: SPIRONOLACTONE 25 MG TABLET PO SCH ×2 (08:53→23:13)
[2018-08-07] MEDS: ASPIRIN EC 81 MG TABLET PO SCH (08:53)
[2018-08-07] MEDS: FUROSEMIDE 40 MG/4 ML VIAL IV SCH (09:51)
[2018-08-07] MEDS: VANCOMYCIN INJ 1,000 MG in SODIUM CHLORIDE 0.9% 250 ML IV SCH (11:49)
[2018-08-07] MEDS: ATORVASTATIN 20 MG TABLET PO SCH (23:12)
[2018-08-07] MEDS: INSULIN GLARGINE 100 UNIT/ML SUBCUT SCH (23:13)
[2018-08-08] MEDS: ALBUTEROL/IPRATROPIUM 3 ML NEB RESP TX SCH ×4 (01:52→20:08)
[2018-08-08 05:02] LABS: Basophils # 0.1 10*3/uL (0.0-0.2); Basophils % 0.2 % (0.0-0.8); Hematocrit 44.1 VOL% (42.0-52.0); Hemoglobin 14.8 GM/DL (14.0-18.0); Immature Granulocytes Absolute 0.32 #; Lymphocytes # 0.3 10*3/uL (1.4-4.0); Mean Corpuscular HGB Conc 33.6 GM/DL (32-36); Mean Corpuscular Hemoglobin 32 PG (27-34); Mean Platelet Volume 11.8 FL (9.6-12.0); Monocytes # 1.8 10*3/uL (0.11-0.8); Monocytes % 5.7 % (1.7-12.7); Neutrophils # 29.4 10*3/uL (1.4-7.4); Neutrophils % 92.1 % (38.7-73.9); Platelet Count 306 T/CUMM (130-400); Red Blood Count 4.64 MC/CUMM (3.8-5.5); Red Cell Distribution Width 14.3 % (9.3-17.3); White Blood Count 31.9 T/CUMM (4-12)
[2018-08-08 05:25] LABS: Calcium 7.3 MG/DL (8.5-10.1); Osmolality,Calculated 298.7 MOS/KG (273-304); Potassium 3.6 MMOL/L (3.5-5.1)
[2018-08-08 05:41] LABS: Band Neutrophils 4 % (0-10); Lymphocytes 3 % (20-55); Platelet Estimate Normal; Segmented Neutrophils 88 % (50-85); Total Cells Counted 100
[2018-08-08 05:42] LABS: Anisocytosis 1+
[2018-08-08] MEDS: LEVOTHYROXINE 100 MCG TABLET PO SCH (07:37)
[2018-08-08] MEDS: INSULIN REGULAR 100 UNIT/ML SUBCUT SCH ×4 (08:30→21:20)
[2018-08-08] MEDS: MONTELUKAST 10 MG TABLET PO SCH (09:14)
[2018-08-08] MEDS: ASPIRIN EC 81 MG TABLET PO SCH (09:14)
[2018-08-08] MEDS: MULTIVITAMIN (CENTRUM) TABLET PO SCH (09:15)
[2018-08-08] MEDS: CETIRIZINE 10 MG TABLET PO SCH (09:15)
[2018-08-08] MEDS: FUROSEMIDE 40 MG TABLET PO SCH (09:15)
[2018-08-08] MEDS: predniSONE 5 MG TABLET PO SCH (09:15)
[2018-08-08] MEDS: SPIRONOLACTONE 25 MG TABLET PO SCH ×2 (09:15→21:12)
[2018-08-08] MEDS: CALCIUM (CARBONATE) 500 MG TABLET PO SCH (09:15)
[2018-08-08] MEDS: POTASSIUM CHLORIDE 20 MEQ TABLET PO PRN ×2 (09:15→11:24)
[2018-08-08] MEDS: TICAGRELOR 90 MG TABLET PO SCH ×2 (09:15→21:12)
[2018-08-08] MEDS: METOPROLOL SUCCINATE XL 25 MG TABLET PO SCH (09:15)
[2018-08-08] MEDS: PANTOPRAZOLE 40 MG TABLET PO SCH (09:15)
[2018-08-08] MEDS: OCTREOTIDE 100 MCG/ML SYRINGE SUBCUT SCH ×2 (09:16→21:14)
[2018-08-08] MEDS: DOCUSATE SODIUM 100 MG CAPSULE PO SCH ×2 (09:16→21:14)
[2018-08-08] MEDS: NYSTATIN 500,000 UNIT/5 ML UDCUP SWISH/SWAL SCH ×3 (13:34→21:12)
[2018-08-08] MEDS: ATORVASTATIN 20 MG TABLET PO SCH (21:12)
[2018-08-08] MEDS: MORPHINE 4 MG/1 ML VIAL IV PRN (21:13)
[2018-08-08] MEDS: INSULIN GLARGINE 100 UNIT/ML SUBCUT SCH (21:14)
[2018-08-09] MEDS: ALBUTEROL/IPRATROPIUM 3 ML NEB RESP TX SCH ×4 (01:43→20:07)
[2018-08-09] MEDS: LEVOTHYROXINE 100 MCG TABLET PO SCH (06:40)
[2018-08-09] MEDS: INSULIN REGULAR 100 UNIT/ML SUBCUT SCH ×4 (08:48→23:27)
[2018-08-09] MEDS: CETIRIZINE 10 MG TABLET PO SCH (08:49)
[2018-08-09] MEDS: NYSTATIN 500,000 UNIT/5 ML UDCUP SWISH/SWAL SCH ×4 (08:49→22:34)
[2018-08-09] MEDS: PANTOPRAZOLE 40 MG TABLET PO SCH (08:49)
[2018-08-09] MEDS: TICAGRELOR 90 MG TABLET PO SCH ×2 (08:49→22:33)
[2018-08-09] MEDS: FUROSEMIDE 40 MG TABLET PO SCH (08:49)
[2018-08-09] MEDS: predniSONE 5 MG TABLET PO SCH (08:49)
[2018-08-09] MEDS: METOPROLOL SUCCINATE XL 25 MG TABLET PO SCH (08:49)
[2018-08-09] MEDS: MULTIVITAMIN (CENTRUM) TABLET PO SCH (08:49)
[2018-08-09] MEDS: CALCIUM (CARBONATE) 500 MG TABLET PO SCH (08:49)
[2018-08-09] MEDS: ASPIRIN EC 81 MG TABLET PO SCH (08:49)
[2018-08-09] MEDS: SPIRONOLACTONE 25 MG TABLET PO SCH ×2 (08:49→23:27)
[2018-08-09] MEDS: MONTELUKAST 10 MG TABLET PO SCH (08:49)
[2018-08-09] MEDS: OCTREOTIDE 100 MCG/ML SYRINGE SUBCUT SCH ×2 (08:50→23:28)
[2018-08-09] MEDS: DOCUSATE SODIUM 100 MG CAPSULE PO SCH ×2 (08:58→22:34)
[2018-08-09] MEDS: ASCORBIC ACID 500 MG TABLET PO SCH ×2 (12:00→22:33)
[2018-08-09] MEDS: ZINC SULFATE 220 MG CAPSULE PO SCH (12:00)
[2018-08-09] MEDS: MORPHINE 4 MG/1 ML VIAL IV PRN (22:34)
[2018-08-09] MEDS: ATORVASTATIN 20 MG TABLET PO SCH (22:34)
[2018-08-09] MEDS: INSULIN GLARGINE 100 UNIT/ML SUBCUT SCH (23:28)
[2018-08-10] MEDS: ALBUTEROL/IPRATROPIUM 3 ML NEB RESP TX SCH ×4 (01:36→20:00)
[2018-08-10 04:45] LABS: Basophils % 0.2 % (0.0-0.8); Eosinophils # 0.1 10*3/uL (0.0-0.87); Eosinophils % 0.6 % (0.00-10.9); Hematocrit 43.4 VOL% (42.0-52.0); Hemoglobin 14.3 GM/DL (14.0-18.0); Immature Granulocytes % 1.1 %; Immature Granulocytes Absolute 0.19 #; Lymphocytes # 0.4 10*3/uL (1.4-4.0); Lymphocytes % 2.4 % (21.2-54.2); Mean Corpuscular HGB Conc 32.9 GM/DL (32-36); Mean Corpuscular Hemoglobin 31 PG (27-34); Mean Corpuscular Volume 93.9 FL (87-102); Mean Platelet Volume 11.9 FL (9.6-12.0); Monocytes # 0.9 10*3/uL (0.11-0.8); Monocytes % 5.3 % (1.7-12.7); Neutrophils # 15.9 10*3/uL (1.4-7.4); Neutrophils % 90.4 % (38.7-73.9); Platelet Count 230 T/CUMM (130-400); Red Blood Count 4.62 MC/CUMM (3.8-5.5); Red Cell Distribution Width 14.3 % (9.3-17.3); White Blood Count 17.6 T/CUMM (4-12)
[2018-08-10 05:15] LABS: Osmolality,Calculated 289.1 MOS/KG (273-304); Potassium 3.4 MMOL/L (3.5-5.1)
[2018-08-10] MEDS: LEVOTHYROXINE 100 MCG TABLET PO SCH (06:59)
[2018-08-10 08:28] LABS: Band Neutrophils 1 % (0-10); Lymphocytes 1 % (20-55); Polychromasia Slight; Segmented Neutrophils 95 % (50-85); Total Cells Counted 100
[2018-08-10 08:29] LABS: Ovalocytes Slight; Platelet Estimate Normal; Stomatocytes Slight
[2018-08-10] MEDS: INSULIN REGULAR 100 UNIT/ML SUBCUT SCH ×4 (09:19→22:20)
[2018-08-10] MEDS: FUROSEMIDE 40 MG TABLET PO SCH (09:22)
[2018-08-10] MEDS: METOPROLOL SUCCINATE XL 25 MG TABLET PO SCH ×2 (09:22→10:43)
[2018-08-10] MEDS: MONTELUKAST 10 MG TABLET PO SCH (09:22)
[2018-08-10] MEDS: ZINC SULFATE 220 MG CAPSULE PO SCH (09:22)
[2018-08-10] MEDS: PANTOPRAZOLE 40 MG TABLET PO SCH (09:22)
[2018-08-10] MEDS: NYSTATIN 500,000 UNIT/5 ML UDCUP SWISH/SWAL SCH ×4 (09:23→22:19)
[2018-08-10] MEDS: DOCUSATE SODIUM 100 MG CAPSULE PO SCH ×2 (09:23→22:19)
[2018-08-10] MEDS: CETIRIZINE 10 MG TABLET PO SCH (09:23)
[2018-08-10] MEDS: MULTIVITAMIN (CENTRUM) TABLET PO SCH (09:23)
[2018-08-10] MEDS: predniSONE 5 MG TABLET PO SCH (09:23)
[2018-08-10] MEDS: CALCIUM (CARBONATE) 500 MG TABLET PO SCH (09:23)
[2018-08-10] MEDS: TICAGRELOR 90 MG TABLET PO SCH ×2 (09:23→22:19)
[2018-08-10] MEDS: ASPIRIN EC 81 MG TABLET PO SCH (09:23)
[2018-08-10] MEDS: ASCORBIC ACID 500 MG TABLET PO SCH ×2 (09:23→22:34)
[2018-08-10] MEDS: SPIRONOLACTONE 25 MG TABLET PO SCH ×2 (09:23→22:18)
[2018-08-10] MEDS: OCTREOTIDE 100 MCG/ML SYRINGE SUBCUT SCH ×2 (09:24→22:20)
[2018-08-10] MEDS: PHENOL 1.4% THROAT SPRAY 177 ML BOTTLE PO PRN (22:17)
[2018-08-10] MEDS: ATORVASTATIN 20 MG TABLET PO SCH (22:18)
[2018-08-10] MEDS: INSULIN GLARGINE 100 UNIT/ML SUBCUT SCH (22:19)
[2018-08-10] MEDS: ACETAMINOPHEN 325 MG TABLET PO PRN (22:34)
[2018-08-10] MEDS: POTASSIUM CHLORIDE 20 MEQ TABLET PO PRN (22:34)
[2018-08-11] MEDS: ALBUTEROL/IPRATROPIUM 3 ML NEB RESP TX SCH ×4 (00:34→20:11)
[2018-08-11] MEDS: POTASSIUM CHLORIDE 20 MEQ TABLET PO PRN ×3 (00:46→08:48)
[2018-08-11 04:50] LABS: Basophils % 0.1 % (0.0-0.8); Eosinophils # 0.1 10*3/uL (0.0-0.87); Eosinophils % 0.9 % (0.00-10.9); Hematocrit 40.8 VOL% (42.0-52.0); Hemoglobin 13.8 GM/DL (14.0-18.0); Immature Granulocytes % 0.9 %; Immature Granulocytes Absolute 0.15 #; Lymphocytes # 0.4 10*3/uL (1.4-4.0); Lymphocytes % 2.2 % (21.2-54.2); Mean Corpuscular HGB Conc 33.8 GM/DL (32-36); Mean Corpuscular Hemoglobin 31 PG (27-34); Mean Corpuscular Volume 92.9 FL (87-102); Mean Platelet Volume 12.2 FL (9.6-12.0); Monocytes # 0.8 10*3/uL (0.11-0.8); Monocytes % 5.2 % (1.7-12.7); Neutrophils # 14.4 10*3/uL (1.4-7.4); Neutrophils % 90.7 % (38.7-73.9); Platelet Count 226 T/CUMM (130-400); Red Blood Count 4.39 MC/CUMM (3.8-5.5); White Blood Count 15.8 T/CUMM (4-12)
[2018-08-11 05:01] LABS: Calcium 6.9 MG/DL (8.5-10.1); Osmolality,Calculated 282.5 MOS/KG (273-304); Potassium 3.7 MMOL/L (3.5-5.1)
[2018-08-11 05:22] LABS: Lymphocytes 1 % (20-55); Segmented Neutrophils 94 % (50-85); Total Cells Counted 100
[2018-08-11 05:23] LABS: Giant Platelets Few; Hypochromasia Slight
[2018-08-11 05:24] LABS: Platelet Estimate Normal
[2018-08-11] MEDS: LEVOTHYROXINE 112 MCG TABLET PO SCH (06:40)
[2018-08-11] MEDS: INSULIN REGULAR 100 UNIT/ML SUBCUT SCH ×4 (08:43→22:47)
[2018-08-11] MEDS: PHENOL 1.4% THROAT SPRAY 177 ML BOTTLE PO PRN ×2 (08:44→17:51)
[2018-08-11] MEDS: NYSTATIN 500,000 UNIT/5 ML UDCUP SWISH/SWAL SCH ×4 (08:45→22:38)
[2018-08-11] MEDS: ASCORBIC ACID 500 MG TABLET PO SCH ×2 (08:46→22:32)
[2018-08-11] MEDS: MONTELUKAST 10 MG TABLET PO SCH (08:46)
[2018-08-11] MEDS: DOCUSATE SODIUM 100 MG CAPSULE PO SCH ×2 (08:47→22:32)
[2018-08-11] MEDS: SPIRONOLACTONE 25 MG TABLET PO SCH ×2 (08:47→22:30)
[2018-08-11] MEDS: CALCIUM (CARBONATE) 500 MG TABLET PO SCH (08:47)
[2018-08-11] MEDS: MULTIVITAMIN (CENTRUM) TABLET PO SCH (08:47)
[2018-08-11] MEDS: TICAGRELOR 90 MG TABLET PO SCH ×2 (08:47→22:30)
[2018-08-11] MEDS: CETIRIZINE 10 MG TABLET PO SCH (08:47)
[2018-08-11] MEDS: PANTOPRAZOLE 40 MG TABLET PO SCH (08:47)
[2018-08-11] MEDS: METOPROLOL TARTRATE 25 MG TABLET PO SCH (08:47)
[2018-08-11] MEDS: ASPIRIN EC 81 MG TABLET PO SCH (08:47)
[2018-08-11] MEDS: FUROSEMIDE 40 MG TABLET PO SCH (08:48)
[2018-08-11] MEDS: ZINC SULFATE 220 MG CAPSULE PO SCH (09:10)
[2018-08-11] MEDS: predniSONE 5 MG TABLET PO SCH (09:10)
[2018-08-11] MEDS: OCTREOTIDE 100 MCG/ML SYRINGE SUBCUT SCH ×2 (09:17→22:38)
[2018-08-11] MEDS: MORPHINE 4 MG/1 ML VIAL IV PRN (22:29)
[2018-08-11] MEDS: ATORVASTATIN 20 MG TABLET PO SCH (22:30)
[2018-08-11] MEDS: INSULIN GLARGINE 100 UNIT/ML SUBCUT SCH (22:38)
[2018-08-12] MEDS: ALBUTEROL/IPRATROPIUM 3 ML NEB RESP TX SCH ×3 (00:32→12:34)
[2018-08-12 05:07] LABS: Basophils % 0.1 % (0.0-0.8); Eosinophils # 0.1 10*3/uL (0.0-0.87); Eosinophils % 0.9 % (0.00-10.9); Hematocrit 40.1 VOL% (42.0-52.0); Hemoglobin 13.3 GM/DL (14.0-18.0); Immature Granulocytes % 0.7 %; Immature Granulocytes Absolute 0.09 #; Lymphocytes # 0.4 10*3/uL (1.4-4.0); Lymphocytes % 3.2 % (21.2-54.2); Mean Corpuscular HGB Conc 33.2 GM/DL (32-36); Mean Corpuscular Hemoglobin 31 PG (27-34); Mean Platelet Volume 12.1 FL (9.6-12.0); Monocytes # 0.7 10*3/uL (0.11-0.8); Monocytes % 5.3 % (1.7-12.7); Neutrophils # 11.3 10*3/uL (1.4-7.4); Neutrophils % 89.8 % (38.7-73.9); Platelet Count 224 T/CUMM (130-400); Red Blood Count 4.36 MC/CUMM (3.8-5.5); Red Cell Distribution Width 14.1 % (9.3-17.3); White Blood Count 12.6 T/CUMM (4-12)
[2018-08-12 05:29] LABS: Albumin 1.5 G/DL (3.4-5.0); Calcium 7.3 MG/DL (8.5-10.1); Potassium 3.9 MMOL/L (3.5-5.1); Total Protein 4.7 G/DL (6.4-8.3)
[2018-08-12 05:39] LABS: Band Neutrophils 1 % (0-10); Eosinophils 1 % (0-10); Hypochromasia 1+; Lymphocytes 3 % (20-55); Ovalocytes Slight; Platelet Estimate Adequate; Segmented Neutrophils 90 % (50-85); Total Cells Counted 100
[2018-08-12] MEDS: LEVOTHYROXINE 112 MCG TABLET PO SCH (06:30)
[2018-08-12] MEDS: INSULIN REGULAR 100 UNIT/ML SUBCUT SCH ×3 (07:39→17:33)
[2018-08-12] MEDS: NYSTATIN 500,000 UNIT/5 ML UDCUP SWISH/SWAL SCH ×3 (08:36→17:32)
[2018-08-12] MEDS: DOCUSATE SODIUM 100 MG CAPSULE PO SCH (08:36)
[2018-08-12] MEDS: ASPIRIN EC 81 MG TABLET PO SCH (08:36)
[2018-08-12] MEDS: PANTOPRAZOLE 40 MG TABLET PO SCH (08:36)
[2018-08-12] MEDS: FUROSEMIDE 40 MG TABLET PO SCH (08:37)
[2018-08-12] MEDS: MONTELUKAST 10 MG TABLET PO SCH (08:37)
[2018-08-12] MEDS: METOPROLOL TARTRATE 25 MG TABLET PO SCH (08:37)
[2018-08-12] MEDS: TICAGRELOR 90 MG TABLET PO SCH (08:37)
[2018-08-12] MEDS: ZINC SULFATE 220 MG CAPSULE PO SCH (08:37)
[2018-08-12] MEDS: MULTIVITAMIN (CENTRUM) TABLET PO SCH (08:37)
[2018-08-12] MEDS: SPIRONOLACTONE 25 MG TABLET PO SCH (08:38)
[2018-08-12] MEDS: CALCIUM (CARBONATE) 500 MG TABLET PO SCH (08:38)
[2018-08-12] MEDS: ASCORBIC ACID 500 MG TABLET PO SCH (08:38)
[2018-08-12] MEDS: CETIRIZINE 10 MG TABLET PO SCH (08:39)
[2018-08-12] MEDS: ACETAMINOPHEN 325 MG TABLET PO PRN (08:40)
[2018-08-12] MEDS: predniSONE 5 MG TABLET PO SCH (08:42)
[2018-08-12] MEDS: OCTREOTIDE 100 MCG/ML SYRINGE SUBCUT SCH (09:29)
[2018-08-12 16:48] VITALS: BP 90/57
[2018-08-12] MEDS ORDERED: OCTREOTIDE 100 MCG/ML SYRINGE SUBCUT ONE (17:00)
== END 2018-08-12 18:45 | disposition home health service (06) | DRG 186 ==
LOC: N.ED 12:52 → N.EDINP 16:20 → SUATTDRO 16:20 → N.TELES 18:50
PROVIDERS: ADMIT Internal Medicine Infectious Disease; ATTEND Internal Medicine
PROC: IRGDHTC (2018-08-04 08:35)

== ENCOUNTER 2018-08-27 20:36 | Inpatient (IN) ==
[2018-08-27] MEDS ORDERED: LIDOCAINE 1%/EPI INJ 20 ML VIAL ONE (20:50)
[2018-08-27] MEDS ORDERED: MORPHINE 10 MG/1 ML VIAL ONE (20:54)
[2018-08-27] MEDS ORDERED: ONDANSETRON 4 MG/2 ML VIAL ONE (20:55)
[2018-08-27] MEDS ORDERED: NITROGLYCERIN SL 0.4 MG TABLET SL PRN (21:58)
[2018-08-27] MEDS ORDERED: ALBUTEROL 2.5 MG/3 ML NEB RESP TX PRN (21:58)
[2018-08-27] MEDS ORDERED: MORPHINE 4 MG/1 ML VIAL IV STA (22:23)
[2018-08-27] MEDS ORDERED: ONDANSETRON 4 MG/2 ML VIAL IV STA (22:37)
[2018-08-27 22:49] LABS: Basophils % 0.1 % (0.0-0.8); Eosinophils % 0.1 % (0.00-10.9); Hematocrit 38.8 VOL% (42.0-52.0); Hemoglobin 13.5 GM/DL (14.0-18.0); Immature Granulocytes % 0.6 %; Immature Granulocytes Absolute 0.06 #; Lymphocytes # 0.5 10*3/uL (1.4-4.0); Lymphocytes % 4.6 % (21.2-54.2); Mean Corpuscular HGB Conc 34.8 GM/DL (32-36); Mean Corpuscular Hemoglobin 32 PG (27-34); Mean Corpuscular Volume 90.7 FL (87-102); Monocytes # 0.8 10*3/uL (0.11-0.8); Monocytes % 7.8 % (1.7-12.7); Neutrophils # 9.1 10*3/uL (1.4-7.4); Neutrophils % 86.8 % (38.7-73.9); Platelet Count 456 T/CUMM (130-400); Red Blood Count 4.28 MC/CUMM (3.8-5.5); Red Cell Distribution Width 16.4 % (9.3-17.3); White Blood Count 10.4 T/CUMM (4-12)
[2018-08-27 22:58] LABS: Calcium 7.3 MG/DL (8.5-10.1); Osmolality,Calculated 267.9 MOS/KG (273-304); Potassium 3.6 MMOL/L (3.5-5.1)
[2018-08-27 23:55] LABS: Band Neutrophils 1 % (0-10); Lymphocytes 2 % (20-55); Platelet Estimate Increased; Segmented Neutrophils 92 % (50-85); Total Cells Counted 100
[2018-08-28] MEDS: LEVOTHYROXINE 112 MCG TABLET PO SCH (05:57)
[2018-08-28] MEDS: ALBUTEROL/IPRATROPIUM 3 ML NEB RESP TX SCH ×3 (07:23→23:05)
[2018-08-28] MEDS: ASPIRIN EC 81 MG TABLET PO SCH (08:40)
[2018-08-28] MEDS: POTASSIUM CHLORIDE 20 MEQ TABLET PO SCH (08:40)
[2018-08-28] MEDS: ASCORBIC ACID 500 MG TABLET PO SCH ×2 (08:40→21:47)
[2018-08-28] MEDS: FUROSEMIDE 40 MG TABLET PO SCH (08:40)
[2018-08-28] MEDS: ZINC SULFATE 220 MG CAPSULE PO SCH (08:40)
[2018-08-28] MEDS: MULTIVITAMIN (CENTRUM) TABLET PO SCH (08:40)
[2018-08-28] MEDS: MONTELUKAST 10 MG TABLET PO SCH (08:40)
[2018-08-28] MEDS: CALCIUM (CARBONATE) 500 MG TABLET PO SCH (08:40)
[2018-08-28] MEDS: CETIRIZINE 10 MG TABLET PO SCH (08:40)
[2018-08-28] MEDS: TICAGRELOR 90 MG TABLET PO SCH ×2 (08:41→21:48)
[2018-08-28] MEDS: FERROUS SULFATE 325 MG TABLET PO SCH ×2 (08:41→21:48)
[2018-08-28] MEDS: SPIRONOLACTONE 25 MG TABLET PO SCH ×3 (08:41→21:54)
[2018-08-28] MEDS: OCTREOTIDE 100 MCG/ML SYRINGE SUBCUT SCH ×2 (12:05→21:47)
[2018-08-28] MEDS: FLUTICASONE/SALMETEROL 250-50 DISKUS 14 DOSE INH SCH ×2 (12:05→21:46)
[2018-08-28] MEDS: ATORVASTATIN 20 MG TABLET PO SCH (21:48)
[2018-08-29] MEDS: ALBUTEROL/IPRATROPIUM 3 ML NEB RESP TX SCH ×3 (07:12→23:58)
[2018-08-29] MEDS ORDERED: DOCUSATE SODIUM 100 MG CAPSULE PO PRN (07:21)
[2018-08-29] MEDS: ZINC SULFATE 220 MG CAPSULE PO SCH (08:29)
[2018-08-29] MEDS: TICAGRELOR 90 MG TABLET PO SCH ×2 (08:29→21:27)
[2018-08-29] MEDS: MULTIVITAMIN (CENTRUM) TABLET PO SCH (08:29)
[2018-08-29] MEDS: LEVOTHYROXINE 112 MCG TABLET PO SCH (08:29)
[2018-08-29] MEDS: CETIRIZINE 10 MG TABLET PO SCH (08:30)
[2018-08-29] MEDS: MONTELUKAST 10 MG TABLET PO SCH (08:30)
[2018-08-29] MEDS: FUROSEMIDE 40 MG TABLET PO SCH (08:30)
[2018-08-29] MEDS: CALCIUM (CARBONATE) 500 MG TABLET PO SCH (08:30)
[2018-08-29] MEDS: ASPIRIN EC 81 MG TABLET PO SCH (08:30)
[2018-08-29] MEDS: ASCORBIC ACID 500 MG TABLET PO SCH ×2 (08:30→21:27)
[2018-08-29] MEDS: POTASSIUM CHLORIDE 20 MEQ TABLET PO SCH (08:30)
[2018-08-29] MEDS: FERROUS SULFATE 325 MG TABLET PO SCH ×2 (08:31→21:27)
[2018-08-29] MEDS: OCTREOTIDE 100 MCG/ML SYRINGE SUBCUT SCH ×2 (08:38→21:28)
[2018-08-29] MEDS: FLUTICASONE/SALMETEROL 250-50 DISKUS 14 DOSE INH SCH ×2 (08:38→21:29)
[2018-08-29] MEDS: ATORVASTATIN 20 MG TABLET PO SCH (21:27)
[2018-08-29] MEDS: KETOROLAC 15 MG/1 ML VIAL IV PRN (21:34)
[2018-08-30] MEDS: ALBUTEROL/IPRATROPIUM 3 ML NEB RESP TX SCH ×3 (07:19→23:20)
[2018-08-30 07:32] LABS: Basophils % 0.3 % (0.0-0.8); Eosinophils # 0.4 10*3/uL (0.0-0.87); Eosinophils % 3.6 % (0.00-10.9); Hemoglobin 11.9 GM/DL (14.0-18.0); Immature Granulocytes % 0.6 %; Immature Granulocytes Absolute 0.06 #; Lymphocytes # 0.9 10*3/uL (1.4-4.0); Lymphocytes % 9.1 % (21.2-54.2); Mean Corpuscular Hemoglobin 31 PG (27-34); Mean Corpuscular Volume 91.9 FL (87-102); Mean Platelet Volume 9.8 FL (9.6-12.0); Monocytes # 1.1 10*3/uL (0.11-0.8); Monocytes % 10.3 % (1.7-12.7); Neutrophils # 7.8 10*3/uL (1.4-7.4); Neutrophils % 76.1 % (38.7-73.9); Platelet Count 415 T/CUMM (130-400); Red Blood Count 3.81 MC/CUMM (3.8-5.5); Red Cell Distribution Width 16.4 % (9.3-17.3); White Blood Count 10.3 T/CUMM (4-12)
[2018-08-30 08:08] LABS: Calcium 7.6 MG/DL (8.5-10.1); Osmolality,Calculated 266.1 MOS/KG (273-304)
[2018-08-30] MEDS: ASPIRIN EC 81 MG TABLET PO SCH (09:41)
[2018-08-30] MEDS: ASCORBIC ACID 500 MG TABLET PO SCH ×2 (09:41→20:56)
[2018-08-30] MEDS: FUROSEMIDE 40 MG TABLET PO SCH (09:41)
[2018-08-30] MEDS: FERROUS SULFATE 325 MG TABLET PO SCH ×2 (09:41→21:09)
[2018-08-30] MEDS: CETIRIZINE 10 MG TABLET PO SCH (09:41)
[2018-08-30] MEDS: ZINC SULFATE 220 MG CAPSULE PO SCH (09:41)
[2018-08-30] MEDS: MULTIVITAMIN (CENTRUM) TABLET PO SCH (09:41)
[2018-08-30] MEDS: TICAGRELOR 90 MG TABLET PO SCH ×2 (09:42→20:56)
[2018-08-30] MEDS: POTASSIUM CHLORIDE 20 MEQ TABLET PO SCH (09:42)
[2018-08-30] MEDS: MONTELUKAST 10 MG TABLET PO SCH (09:42)
[2018-08-30] MEDS: CALCIUM (CARBONATE) 500 MG TABLET PO SCH (09:42)
[2018-08-30] MEDS: FLUTICASONE/SALMETEROL 250-50 DISKUS 14 DOSE INH SCH ×2 (09:43→20:55)
[2018-08-30] MEDS: OCTREOTIDE 100 MCG/ML SYRINGE SUBCUT SCH ×3 (09:50→20:56)
[2018-08-30] MEDS: LEVOTHYROXINE 112 MCG TABLET PO SCH (09:51)
[2018-08-30] MEDS ORDERED: BISACODYL 10 MG SUPP RECTAL PRN (11:09)
[2018-08-30] MEDS: SPIRONOLACTONE 25 MG TABLET PO SCH (11:14)
[2018-08-30] MEDS: KETOROLAC 15 MG/1 ML VIAL IV PRN ×2 (13:40→21:04)
[2018-08-30] MEDS: cephALEXin 500 MG CAPSULE PO SCH ×2 (15:53→21:09)
[2018-08-30] MEDS: ATORVASTATIN 20 MG TABLET PO SCH (20:56)
[2018-08-31 04:13] LABS: PT Patient Result 11.1 SECS
[2018-08-31 04:19] LABS: Albumin 1.3 G/DL (3.4-5.0); Bilirubin,Direct 0.14 MG/DL (0.0-0.20); Bilirubin,Indirect 0.3 MG/DL (0.0-1.0); Bilirubin,Total 0.4 MG/DL (0.2-1.0); Prealbumin 8.3 MG/DL (20-40); Total Protein 5.7 G/DL (6.4-8.3)
[2018-08-31] MEDS: cephALEXin 500 MG CAPSULE PO SCH (06:35)
[2018-08-31] MEDS: LEVOTHYROXINE 112 MCG TABLET PO SCH (06:35)
[2018-08-31] MEDS: ALBUTEROL/IPRATROPIUM 3 ML NEB RESP TX SCH (08:13)
[2018-08-31] MEDS: OCTREOTIDE 100 MCG/ML SYRINGE SUBCUT SCH (09:09)
[2018-08-31] MEDS: CALCIUM (CARBONATE) 500 MG TABLET PO SCH (09:11)
[2018-08-31] MEDS: POTASSIUM CHLORIDE 20 MEQ TABLET PO SCH (09:11)
[2018-08-31] MEDS: ZINC SULFATE 220 MG CAPSULE PO SCH (09:11)
[2018-08-31] MEDS: TICAGRELOR 90 MG TABLET PO SCH (09:12)
[2018-08-31] MEDS: MULTIVITAMIN (CENTRUM) TABLET PO SCH (09:12)
[2018-08-31] MEDS: ASPIRIN EC 81 MG TABLET PO SCH (09:12)
[2018-08-31] MEDS: SPIRONOLACTONE 25 MG TABLET PO SCH (09:12)
[2018-08-31] MEDS: FUROSEMIDE 40 MG TABLET PO SCH (09:12)
[2018-08-31] MEDS: MONTELUKAST 10 MG TABLET PO SCH (09:12)
[2018-08-31] MEDS: ASCORBIC ACID 500 MG TABLET PO SCH (09:12)
[2018-08-31] MEDS: CETIRIZINE 10 MG TABLET PO SCH (09:12)
[2018-08-31] MEDS: FLUTICASONE/SALMETEROL 250-50 DISKUS 14 DOSE INH SCH (09:15)
[2018-08-31] MEDS: FERROUS SULFATE 325 MG TABLET PO SCH (09:51)
[2018-08-31 12:26] VITALS: BP 96/61
== END 2018-08-31 13:17 | disposition home or self-care (01) | DRG 816 ==
LOC: N.ED 20:36 → N.EDINP 21:57 → N.CC 23:20 → N.TELEN 08-29 10:19
PROVIDERS: ADMIT Thoracic Surgery (Cardiothoracic Vascular Surgery); ATTEND Thoracic Surgery (Cardiothoracic Vascular Surgery)